=== PATIENT | male | born 1985 | race Two or more races ===

== ENCOUNTER 2025-06-07 16:00 | Emergency (ER) | payer MEDICAID ==
[~2025-06-07] VITALS: Ht 175.3 cm; Wt 85.0 kg
[2025-06-07 16:22] VITALS: O2SAT 98
[2025-06-07] MEDS: KETOROLAC 30MG/ML VIAL IM ONE (19:52)
[2025-06-07] MEDS ORDERED: IBUP-2030 MT (19:53)
[2025-06-07 21:33] VITALS: BP 117/57; PULSE 57; RESP 14; TEMP 36.7; O2SAT 97
== END 2025-06-07 21:34 | disposition home or self-care (01) ==
LOC: ER 16:27
DX: S86.111A Strain of other muscle(s) and tendon(s) of posterior muscle group at lower leg level, right leg, initial encounter (principal); X58.XXXA Exposure to other specified factors, initial encounter; Y93.89 Activity, other specified; Y92.89 Other specified places as the place of occurrence of the external cause; Y99.8 Other external cause status
CPT/HCPCS: 99283; 29515; 73590; 96372; J1885